=== PATIENT | male | born 1945 | race Caucasian/White ===

== ENCOUNTER 2016-11-11 11:44 | Observation (INO) | payer MEDICARE, BC ==
[~2016-11-11] VITALS: Ht 180.3 cm; Wt 98.6 kg
[~2016-11-11 11:44] MED LIST: ASPI325T PO; CEPH500T PO; METO50TA PO
[2016-11-11 11:48] VITALS: BP 165/81; PULSE 57; RESP 18; TEMP 97.5; O2SAT 98
[2016-11-11] MEDS ORDERED: FLEC1TAB8 PO (11:59)
[2016-11-11] MEDS ORDERED: METO25TA3 PO (11:59)
[2016-11-11 12:00] VITALS: O2SAT 99
[2016-11-11] MEDS ORDERED: SODIUM CHLORIDE 0.9% FLUSH 10 ML FLUSH IVF PRN (12:00)
[2016-11-11 12:15] LABS: AUTOMATED NEUTROPHIL # 2.3 TH/MM3 (1.8-7.7); BASOPHIL % 0.9 % (0.0-2.0); EOSINOPHIL # 0.2 TH/MM3 (0-0.4); EOSINOPHIL % 3.1 % (0.0-4.0); HEMATOCRIT 44.1 % (39.0-51.0); HEMO FLAGS DIFF FINAL; LYMPH % 41.2 % (9.0-44.0); MEAN CELL VOLUME 94.3 FL (80.0-100.0); MEAN CORPUSCULAR HEMOGLOBIN 31.7 PG (27.0-34.0); MEAN CORPUSCULAR HGB CONC 33.6 % (32.0-36.0); NEUT % 46.8 % (16.0-70.0); PLATELET COUNT 229 TH/MM3 (150-450); RED BLOOD COUNT 4.67 MIL/MM3 (4.50-5.90); RED CELL DISTRIBUTION WIDTH 13.2 % (11.6-17.2); WHITE BLOOD COUNT 4.9 TH/MM3 (4.0-11.0)
[2016-11-11 12:25] LABS: APTT (PATIENT) 28.3 SEC (24.3-30.1); INTERNATIONAL NORMALIZED RATIO 1.2 RATIO; PROTHROMBIN TIME - PATIENT 13.1 SEC (9.8-11.6)
--- NOTE | 2016-11-11 12:33 | RADRPT ---
EXAM DATE/TIME: 11/11/2016 12:01 [facility] COMPARISON: No previous studies available for comparison. INDICATIONS : Stroke symptoms. MEDICAL HISTORY : Atrial fibrillation. SURGICAL HISTORY : None. ENCOUNTER: Initial ACUITY: 1 day PAIN SCORE: 0/10 LOCATION: Bilateral chest FINDINGS: 2 frontal views of the chest demonstrate the lungs to be symmetrically aerated without evidence of ma ss, infiltrate or effusion. The cardiomediastinal contours are unremarkable. Osseous structures are intact. CONCLUSION: No acute disease. Jerad Laurent Jr., MD on November 11, 2016 at 12:29 Board Certified Radiologist. This report was verified electronically.
--- NOTE | 2016-11-11 12:34 | PD ---
HPI Chief Complaint: Neuro Symptoms/ Deficits Time Seen by Provider: 12:34 Travel History International Travel<30 days: No Contact w/Intl Traveler<30days: No Traveled to known affect area: No History of Present Illness HPI 71-year-old male with history of hypertension, melanoma, A. fib, presents to emergency department for evaluation. Patient states he was working on his taxes and around 11:15 this morning he noticed he was having difficult time typing and the address. He then noticed he was drooling. He went in to talk to his and had slurred speech. This resolved after 30-40 minutes but the patient continued to the ER for further evaluation. There is no preceding headache. Patient states he feels "fine" now. Denies any chest or tightness. No difficulty breathing. No history of CVA or TIA. He has had no recent illnesses, fever, or chills. No other symptoms to report. PFSH Past Medical History Atrial Fibrillation: Yes Cancer: Yes (MELANOMA) Cardiovascular Problems: Yes (A. FIB) Diminished Hearing: No Hypertension: Yes Immunizations Current: Yes Past Surgical History Tonsillectomy: Yes Other Surgery: Yes (MELANOMA REMOVAL) Social History Alcohol Use: Yes (SOCIAL) Tobacco Use: No Substance Use: No Allergies-Medications (Allergen,Severity, Reaction): Coded Allergies: No Known Allergies (Unverified , 11/11/16) Reported Meds & Prescriptions Reported Meds & Active Scripts Active Reported Metoprolol Tartrate 25 Mg Tab 25 Mg PO BID Flecainide (Flecainide Acetate) 50 Mg Tab 50 Mg PO BID Review of Systems Except as stated in HPI: all other systems reviewed are Neg Physical Exam Narrative GENERAL: Well-nourished male patient, in no acute distress SKIN: Focused skin assessment warm/dry. HEAD: Atraumatic. Normocephalic. EYES: Pupils equal and round. No scleral icterus. No injection or drainage. ENT: No nasal bleeding or discharge. Mucous membranes pink and moist. NECK: Trachea midline. No JVD. CARDIOVASCULAR: Regular rate and rhythm. No murmur appreciated. RESPIRATORY: No accessory muscle use. Clear to auscultation. Breath sounds equal bilaterally. GASTROINTESTINAL: Abdomen soft, non-tender, nondistended. Hepatic and splenic margins not palpable. MUSCULOSKELETAL: No obvious deformities. No clubbing. No cyanosis. No edema. NEUROLOGICAL: Awake and alert. No obvious cranial nerve deficits. Motor grossly within normal limits. Normal speech. No pronator drift. Equal strength bilateral extremities. PSYCHIATRIC: Appropriate mood and affect; insight and judgment normal. Data Data Last Documented VS Vital Signs Date Time Temp Pulse Resp B/P Pulse Ox O2 Delivery O2 Flow Rate FiO2 11/11/16 12:51 53 18 127/60 98 Room Air 11/11/16 11:48 97.5 Orders Electrocardiogram (11/11/16 11:57) Complete Blood Count With Diff (11/11/16 11:57) Comprehensive Metabolic Panel (11/11/16 11:57) Magnesium (Mg) (11/11/16 11:57) Ckmb (Isoenzyme) Profile (11/11/16 11:57) Act Partial Throm Time (Ptt) (11/11/16 11:57) Prothrombin Time / Inr (Pt) (11/11/16 11:57) Urinalysis - C+S If Indicated (11/11/16 11:57) Chest, Single Ap (11/11/16 11:57) Ct Brain W/O Iv Contrast(Rout) (11/11/16 11:57) Ecg Monitoring (11/11/16 11:57) Iv Access Insert/Monitor (11/11/16 11:57) Oximetry (11/11/16 11:57) Sodium Chloride 0.9% Flush (Ns Flush) (11/11/16 12:00) CKMB (11/11/16 12:02) CKMB% (11/11/16 12:02) Labs Laboratory Tests Test 11/11/16 11/11/16 12:02 13:25 White Blood Count 4.9 TH/MM3 Red Blood Count 4.67 MIL/MM3 Hemoglobin 14.8 GM/DL Hematocrit 44.1 % Mean Corpuscular Volume 94.3 FL Mean Corpuscular Hemoglobin 31.7 PG Mean Corpuscular Hemoglobin 33.6 % Concent Red Cell Distribution Width 13.2 % Platelet Count 229 TH/MM3 Mean Platelet Volume 8.0 FL Neutrophils (%) (Auto) 46.8 % Lymphocytes (%) (Auto) 41.2 % Monocytes (%) (Auto) 8.0 % Eosinophils (%) (Auto) 3.1 % Basophils (%) (Auto) 0.9 % Neutrophils # (Auto) 2.3 TH/MM3 Lymphocytes # (Auto) 2.0 TH/MM3 Monocytes # (Auto) 0.4 TH/MM3 Eosinophils # (Auto) 0.2 TH/MM3 Basophils # (Auto) 0.0 TH/MM3 CBC Comment DIFF FINAL Differential Comment Prothrombin Time 13.1 SEC Prothromb Time International 1.2 RATIO Ratio Activated Partial 28.3 SEC Thromboplast Time Sodium Level 140 MEQ/L Potassium Level 4.1 MEQ/L Chloride Level 105 MEQ/L Carbon Dioxide Level 31.9 MEQ/L Anion Gap 3 MEQ/L Blood Urea Nitrogen 15 MG/DL Creatinine 1.02 MG/DL Estimat Glomerular Filtration 72 ML/MIN Rate Random Glucose 83 MG/DL Calcium Level 9.4 MG/DL Magnesium Level 2.3 MG/DL Total Bilirubin 0.3 MG/DL Aspartate Amino Transf 27 U/L (AST/SGOT) Alanine Aminotransferase 39 U/L (ALT/SGPT) Alkaline Phosphatase 59 U/L Total Creatine Kinase 159 U/L Creatine Kinase MB 2.4 NG/ML Total Protein 7.2 GM/DL Albumin 3.8 GM/DL Urine Color LIGHT-YELLOW Urine Turbidity CLEAR Urine pH 7.0 Urine Specific [place] 1.006 Urine Protein NEG mg/dL Urine Glucose (UA) NEG mg/dL Urine Ketones NEG mg/dL Urine Occult Blood NEG Urine Nitrite NEG Urine Bilirubin NEG Urine Urobilinogen LESS THAN 2.0 MG/DL Urine Leukocyte Esterase NEG Urine WBC 1 /hpf Microscopic Urinalysis Comment CULT NOT INDICATED MDM Medical Decision Making Medical Screen Exam Complete: Yes Emergency Medical Condition: Yes Medical Record Reviewed: Yes Differential Diagnosis TIA versus CVA versus electrolyte abnormality Narrative Course 71-year-old male presents to the emergency department for evaluation. Upon arrival and during assessment, patient is completely asymptomatic. He has no focal deficits or weakness. CBC and CMP are unremarkable. Chest x-rays without acute disease. CT imaging of the brain is with no acute intracranial findings. Mild partial opacification left ethmoid sinus with small air-fluid suggesting acute sinusitis. I discussed the patient my attending physician Dr. sherron hale. Patient will be admitted to the hospitalist team for observation and further TIA workup. Diagnosis Primary Impression: TIA (transient ischemic attack) Qualified Code: G45.9 - Transient cerebral ischemia, unspecified type Admitting Information Admitting Physician Requests: Observation Condition: Stable Maddy RobertsP Nov 11, 2016 12:34
[2016-11-11 12:42] LABS: ALT (GPT) 39 U/L (12-78); ANION GAP 3 MEQ/L (5-15); AST (GOT) 27 U/L (15-37); BICARBONATE 31.9 MEQ/L (21.0-32.0); BLOOD UREA NITROGEN 15 MG/DL (7-18); CHLORIDE 105 MEQ/L (98-107); GLOMERULAR FILTRATION RATE 72 ML/MIN (>89); MAGNESIUM 2.3 MG/DL (1.5-2.5); POTASSIUM 4.1 MEQ/L (3.5-5.1); SODIUM (NA) 140 MEQ/L (136-145)
[2016-11-11 12:44] LABS: ALKALINE PHOSPHATASE 59 U/L (45-117); CREATINE KINASE 159 U/L (39-308); TOTAL BILIRUBIN ADULT 0.3 MG/DL (0.2-1.0)
[2016-11-11 12:51] VITALS: BP 127/60; PULSE 53; RESP 18; O2SAT 98
[2016-11-11 13:05] LABS: CKMB 2.4 NG/ML (0.5-3.6)
[2016-11-11 13:48] LABS: BLOOD, URINE NEG (NEG); GLUCOSE,URINE NEG (NEG); KETONE, URINE NEG (NEG); NITRITE,URINE NEG (NEG); URINE COLOR LIGHT-YELLOW (YELLW/STRAW)
[2016-11-11 13:49] LABS: COMMENT (UR) CULT NOT INDICATED; CULTURE IF INDICATED CULT NOT INDICATED
--- NOTE | 2016-11-11 13:50 | RADRPT ---
EXAM DATE/TIME: 11/11/2016 12:34 [facility] COMPARISON: No previous studies available for comparison. INDICATIONS : Slurred speech, dizziness. RADIATION DOSE: 44.36 CTDIvol (mGy) MEDICAL HISTORY : None SURGICAL HISTORY : None. ENCOUNTER: Initial ACUITY: 1 day PAIN SCALE: 0/10 LOCATION: cranial TECHNIQUE: Multiple contiguous axial images were obtained of the head. Using automated exposure control and adj ustment of the mA and/or kV according to patient size, radiation dose was kept as low as reasonably a chievable to obtain optimal diagnostic quality images. FINDINGS: CEREBRUM: The ventricles are normal for age. No evidence of midline shift, mass lesion, hemorrhage or acute in farction. No extra-axial fluid collections are seen. POSTERIOR FOSSA: The cerebellum and brainstem are intact. The 4th ventricle is midline. The cerebellopontine angle i s unremarkable. EXTRACRANIAL: Partial opacification left ethmoid sinus a small air-fluid level. SKULL: The calvaria is intact. No evidence of skull fracture. CONCLUSION: 1. No acute intracranial findings. 2. Mild partial opacification left ethmoid sinus with small air-fluid level suggestive of acute sinus itis.. Hal Mcclain MD on November 11, 2016 at 13:46 Board Certified Radiologist. This report was verified electronically.
[2016-11-11] MEDS ORDERED: SODIUM CHLORIDE 0.9% FLUSH 10 ML FLUSH IV FLUSH PRN ×2 (14:45→19:30)
[2016-11-11] MEDS ORDERED: NALOXONE HCL 0.4 MG/ML AMP IV PRN (14:45)
[2016-11-11] MEDS ORDERED: ONDANSETRON HCL 4 MG/2 ML VIAL IVP PRN (14:45)
--- NOTE | 2016-11-11 14:58 | HHI.HP ---
[facility] Service [place] Hospitalists Primary Care Physician Non-Staff Admission Diagnosis TIA Diagnoses: Chief Complaint: Unable to speak. Travel History International Travel<30 Days: No Contact w/Intl Traveler <30 Da: No Traveled to Known Affected Are: No History of Present Illness This is a pleasant 71 y/o male with Hypertension, Melanoma, Atrial fibrillation by history, today on Sinus rhythm, has Bradycardia probable secondary to his anti arrhythmic medicines, Flecainide and Beta Blockers, Patient states he was working on his taxes and around 11:15 this morning he noticed he was having difficult time typing and the address. He then noticed he was drooling. He went in to talk to his and had slurred speech. This resolved after 30-40 minutes but the patient continued to the ER for further evaluation. There is no preceding headache. since seen by ER physician totally asymptomatic. Seen in his bedroom in ER and discussed with him and his , Daughter and sister in law, he is stable his daughter states more than slurred speech, suddenly he was not able to speak but resolved without symptomatology. he has recurrent PAF and was recommended by investigative research specialist to be on anticoagulation, now his CHADS2 SCORE INCREASED TO 3 and he may need to be on anticoagulation at the time of this evaluation he is sinus rhythm, has Bradycardia may need to titrate his Heart medicines, asked for Neurology and Cardiology consults. Past Family Social History Past Medical History Atrial Fibrillation Melanoma by history Hypertension Past Surgical History Tonsillectomy Melanoma resection Reported Medications Reported Meds & Active Scripts Active Reported Metoprolol Tartrate 25 Mg Tab 25 Mg PO BID Flecainide (Flecainide Acetate) 50 Mg Tab 50 Mg PO BID Allergies: Coded Allergies: No Known Allergies (Unverified , 11/11/16) Active Ordered Medications Current Medications Medications (Trade) Dose Ordered Sig/Pollo Route Start Time Stop Time Status Last Admin (NS Flush) 2 ml UNSCH PRN IVF 11/11/16 12:00 Family History Father with Brain Cancer and Sister with Breast Cancer Social History Drinks alcohol socially, lives with his and denies other toxic habit. Physical Exam Vital Signs Vital Signs Date Time Temp Pulse Resp B/P Pulse Ox O2 Delivery O2 Flow Rate FiO2 11/11/16 12:51 53 18 127/60 98 Room Air 11/11/16 12:00 99 Room Air 11/11/16 11:51 56 18 98 Room Air 11/11/16 11:48 97.5 57 18 165/81 98 Physical Exam GENERAL: Obesity, in no acute distress SKIN: Focused skin assessment warm/dry. HEAD: Atraumatic. Normocephalic. EYES: Pupils equal and round. No scleral icterus. No injection or drainage. ENT: No nasal bleeding or discharge. Mucous membranes pink and moist. NECK: Trachea midline. No JVD. CARDIOVASCULAR: Regular rate and rhythm. No murmur appreciated. RESPIRATORY: No accessory muscle use. Clear to auscultation. Breath sounds equal bilaterally. GASTROINTESTINAL: Abdomen soft, non-tender, nondistended. Hepatic and splenic margins not palpable. MUSCULOSKELETAL: No obvious deformities. No clubbing. No cyanosis. No edema. NEUROLOGICAL: Awake and alert. No obvious cranial nerve deficits. Motor grossly within normal limits. Normal speech. No pronator drift. Equal strength bilateral extremities. PSYCHIATRIC: Appropriate mood and affect; insight and judgment normal. Laboratory Laboratory Tests Test 11/11/16 11/11/16 12:02 13:25 White Blood Count 4.9 Red Blood Count 4.67 Hemoglobin 14.8 Hematocrit 44.1 Mean Corpuscular Volume 94.3 Mean Corpuscular Hemoglobin 31.7 Mean Corpuscular Hemoglobin 33.6 Concent Red Cell Distribution Width 13.2 Platelet Count 229 Mean Platelet Volume 8.0 Neutrophils (%) (Auto) 46.8 Lymphocytes (%) (Auto) 41.2 Monocytes (%) (Auto) 8.0 Eosinophils (%) (Auto) 3.1 Basophils (%) (Auto) 0.9 Neutrophils # (Auto) 2.3 Lymphocytes # (Auto) 2.0 Monocytes # (Auto) 0.4 Eosinophils # (Auto) 0.2 Basophils # (Auto) 0.0 CBC Comment DIFF FINAL Differential Comment Prothrombin Time 13.1 Prothromb Time International 1.2 Ratio Activated Partial 28.3 Thromboplast Time Sodium Level 140 Potassium Level 4.1 Chloride Level 105 Carbon Dioxide Level 31.9 Anion Gap 3 Blood Urea Nitrogen 15 Creatinine 1.02 Estimat Glomerular Filtration 72 Rate Random Glucose 83 Calcium Level 9.4 Magnesium Level 2.3 Total Bilirubin 0.3 Aspartate Amino Transf 27 (AST/SGOT) Alanine Aminotransferase 39 (ALT/SGPT) Alkaline Phosphatase 59 Total Creatine Kinase 159 Creatine Kinase MB 2.4 Total Protein 7.2 Albumin 3.8 Urine Color LIGHT-YELLOW Urine Turbidity CLEAR Urine pH 7.0 Urine Specific [place] 1.006 Urine Protein NEG Urine Glucose (UA) NEG Urine Ketones NEG Urine Occult Blood NEG Urine Nitrite NEG Urine Bilirubin NEG Urine Urobilinogen LESS THAN 2.0 Urine Leukocyte Esterase NEG Urine WBC 1 Microscopic Urinalysis Comment CULT NOT INDICATED Result Diagram: 11/11/16 1202 11/11/16 1202 Imaging Last Impressions Head CT 11/11/16 1157 Signed Impressions: Service Date/Time: October 12:34 - CONCLUSION: 1. No acute intracranial findings. 2. Mild partial opacification left ethmoid sinus with small air-fluid level suggestive of acute sinusitis.. Hal Mcclain MD Chest X-Ray 11/11/16 1157 Signed Impressions: Service Date/Time: October 12:01 - CONCLUSION: No acute disease. Jerad Laurent Jr., MD Assessment and Plan Problem List: (1) TIA (transient ischemic attack) ICD Code: G45.9 Status: Acute (2) Atrial fibrillation, currently in sinus rhythm ICD Code: Z86.79 Status: Acute Assessment and Plan 1. TIA patient is been hospitalized for Observation, started on Aspirin 325 mg he already takes 81 mg daily, asked for Cardiac monitoring, Cardiac Enzymes, MRI brain, MRA Neck with contrast, Echocardiogram, Lipid panel, TSH, free T4. Vitamin B12 Folate. 2. Atrial Fibrillation at this time on sinus rhythm, has first degree AV block. bradycardia probable secondary to Anti arrhythmic medicines placed parameters to his medicines, asked for investigative research specialist consult CHADS 2 Score 3 will need anticoagulation. at this time he has sinus rhythm, will continue aspirin by now until seen by Cardiology to take decision the best medicine for him. 3. Hypertension controlled. 4. Obesity strongly recommended to diet and exercise. DVT prophylaxis with Lovenox. PT and OT evaluation. I had the pleasure to talk about the case with JAVIER Miss Maddy Roberts Input and Recommendations Appreciated. Code Status Full code Discussed Condition With Patient, , Daughter and Sister in law, all questions answered to the best of my abilities. Physician Certification 2 Midnight Certification Type: Admission for Inpatient Services Order for Inpatient Services The services are ordered in accordance with Medicare regulations or non- Medicare payer requirements, as applicable. In the case of services not specified as inpatient-only, they are appropriately provided as inpatient services in accordance with the 2-midnight benchmark. Estimated LOS (days): 1 days is the estimated time the patient will need to remain in the hospital, assuming treatment plan goals are met and no additional complications. Post-Hospital Plan: Home Problem Qualifiers (1) TIA (transient ischemic attack): Qualified Code: G45.9 - Transient cerebral ischemia, unspecified type Jay Diaz MD Nov 11, 2016 14:58
[2016-11-11] MEDS ORDERED: ACETAMINOPHEN 325 MG TAB PO PRN (15:00)
[2016-11-11] MEDS ORDERED: BISACODYL 10 MG SUPP RECTAL PRN (15:00)
[2016-11-11] MEDS: PRAVASTATIN SOD 20 MG TAB PO SCH (15:00)
[2016-11-11] MEDS ORDERED: ENOXAPARIN SODIUM 40 MG/0.4 ML SYRINGE SQ SCH (15:00)
[2016-11-11] MEDS: DOCUSATE SODIUM 100 MG CAP PO SCH (15:18)
[2016-11-11] MEDS: SODIUM CHLOR 0.9% 1000 ML INJ 1,000 ML IV SCH (15:18)
[2016-11-11] MEDS: ASPIRIN 325 MG TAB PO SCH (15:18)
[2016-11-11] MEDS ORDERED: GADODIAMIDE PF 287 MG/ML 20 ML VIAL (for RAD MRI) IV ONE (16:21)
--- NOTE | 2016-11-11 16:31 | RADRPT ---
EXAM DATE/TIME: 11/11/2016 16:00 [facility] COMPARISON: CT BRAIN W/O CONTRAST, November 11, 2016, 12:34. INDICATIONS : Confusion. Episode of drooling and no speech. MEDICAL HISTORY : Melanoma on cheek. SURGICAL HISTORY : Tonsillectomy. Melanoma removed three years ago. ENCOUNTER: Initial ACUITY: 1 day PAIN SCORE: 0/10 LOCATION: Head. TECHNIQUE: Multiplanar, multisequence MRI of the brain was performed without contrast. FINDINGS: CEREBRUM: The ventricles are normal for age. No evidence of midline shift, mass lesion, or hemorrhage. No ext raaxial fluid collections are seen. The pituitary gland and suprasellar cistern are normal in config uration. WHITE MATTER: No significant signal abnormalities are seen in the white matter. POSTERIOR FOSSA: The cerebellum and brainstem are intact. The 4th ventricle is midline. The cerebellopontine angle is unremarkable. The cerebellar tonsils are normal in position. DIFFUSION IMAGING: Faint 8mm hyperintensity in the left parietal lobe subcortical white matter on image #41 of the diffu bonny weighted images. Correlating low signal is seen on the ADC map images indicating a small acute t o subacute infarct. EXTRACRANIAL: The visualized portions of the orbits and paranasal sinuses are unremarkable. CONCLUSION: Small acute to subacute infarct in the subcortical white matter of the left parietal lobe. No mass effect. No evidence of hemorrhage. Hal Mcclain MD on November 11, 2016 at 16:25 Board Certified Radiologist. This report was verified electronically.
--- NOTE | 2016-11-11 16:50 | RADRPT ---
EXAM DATE/TIME: 11/11/2016 16:00 [facility] COMPARISON: No previous studies available for comparison. INDICATIONS : Stroke. Episode of drooling and loss of speech. CONTRAST: 20 cc Omniscan (gadodiamide) IV MEDICAL HISTORY : Melanoma on cheek. SURGICAL HISTORY : Tonsillectomy. Melanoma removed. ENCOUNTER: Initial ACUITY: 1 day PAIN SCORE: 0/10 LOCATION: Head. Percent stenosis is calculated using the diameter of the stenotic region over the diameter of the nor mal distal internal carotid artery. TECHNIQUE: Bolus infused MRA of the extracranial circulation was performed using a neurovascular coil. Post pro cessing was performed including rotating subvolume maximum intensity projections of each carotid pasha ry, rotating full volume maximum intensity projections of both carotid arteries, sagittal and coronal sliding thin slab reformations of each carotid artery, and left oblique sliding thin slab reformatio n through the aortic arch to include the origin of the arch branch vessels. FINDINGS: AORTIC ARCH: There is a three vessel origin of the great vessels from the aorta. No evidence of ostial narrowing. RIGHT CAROTID: The common carotid artery is intact. The carotid bulb has a normal configuration without ulceration or narrowing. The internal carotid artery lumen is smooth without stenosis. The external carotid ar mayur is intact. LEFT CAROTID: The common carotid artery is intact. The carotid bulb has a normal configuration without ulceration or narrowing. The internal carotid artery lumen is smooth without stenosis. The external carotid ar mayur is intact. VERTEBRALS: The vertebral arteries have a symmetric diameter. No stenotic lesions are seen. CONCLUSION: Carotid MRA within normal limits. Hal Mcclain MD on November 11, 2016 at 16:45 Board Certified Radiologist. This report was verified electronically.
--- NOTE | 2016-11-11 17:10 | EC ---
Study Study Date:11/11/2016 STUDY CONCLUSIONS SUMMARY - Left ventricle: The cavity size was normal. Wall thickness was normal. Systolic function was normal. The estimated ejection fraction was in the range of 55% to 65%. Wall motion was normal; there were no regional wall motion abnormalities. - Aortic valve: Valve area: 2.03cm^2 (Vmax). - Mitral valve: Mild regurgitation. - Tricuspid valve: Mild regurgitation. If LV function is below 40, please consider prescribing an ACEI or ARB or document rationale for non-use. PROCEDURE DATA STUDY STATUS: Elective. Procedure: Transthoracic echocardiography. Image quality was good. Scanning was performed from the parasternal, apical, and subcostal acoustic windows. Study completion: The patient tolerated the procedure well. Transthoracic echocardiography. M-mode, complete 2D, complete spectral Doppler, and color Doppler. Height: Height: 71in. Weight: Weight: 219.5lb. Body mass index: BMI: 30.7kg/m^2. Body surface area: BSA: 2.2m^2. Patient status: Inpatient. CARDIAC ANATOMY LEFT VENTRICLE: The cavity size was normal. Wall thickness was normal. Systolic function was normal. The estimated ejection fraction was in the range of 55% to 65%. Wall motion was normal; there were no regional wall motion abnormalities. AORTIC VALVE: Trileaflet; normal thickness leaflets. Doppler: Transvalvular velocity was within the normal range. There was no stenosis. No regurgitation. Valve area: 2.03cm^2 (Vmax). Indexed valve area: 0.92cm^2/m^2 (Vmax). AORTA: Aortic root: The aortic root was normal in size. MITRAL VALVE: Structurally normal valve. Doppler: Transvalvular velocity was within the normal range. There was no evidence for stenosis. Mild regurgitation. LEFT ATRIUM: The atrium was normal in size. RIGHT VENTRICLE: The cavity size was normal. Wall thickness was normal. PULMONIC VALVE: Doppler: Transvalvular velocity was within the normal range. There was no evidence for stenosis. No regurgitation. TRICUSPID VALVE: Structurally normal valve. Doppler: Transvalvular velocity was within the normal range. Mild regurgitation. PULMONARY ARTERY: The main pulmonary artery was normal-sized. Systolic pressure was within the normal range. RIGHT ATRIUM: The atrium was normal in size. PERICARDIUM: There was no pericardial effusion. SYSTEMIC VEINS: Inferior vena cava: The vessel was normal in size. Patient weight: 219.5lb _Ejection fraction:_ 65-75% _Fractional shortening:_ 32% up to 5Kg 5-11.5Kg 11.6-22.9Kg 23-45Kg 45-57Kg Aortic Root 7-13 <17 13-22 17-27 17-27 LA diam 6-13 <23 24-38 33-47 37-40 RVID 10-17 7-15 7-15 7-18 8-17 LVIDd 12-22 <32 24-38 33-47 37-40 LVPW 2-4 3-6 5-7 6-8 7-8 IVS 2-4 3-6 5-7 6-8 7-8 BASIC MEASUREMENTS ADULT NORMAL Left ventricle LV internal dimension, ED, chordal *42.1 mm 43-52 level, PLAX LV internal dimension, ES, chordal 32.8 mm 23-38 level, PLAX Fractional shortening, chordal level, *22 % >29 PLAX LV posterior wall thickness, ED 9.61 mm IVS/LVPW ratio, ED 1.11 <1.3 Ventricular septum Septal thickness, ED 10.7 mm Aortic valve Leaflet separation 21 mm 15-26 BASIC MEASUREMENTS ADULT NORMAL Aortic valve Leaflet separation 21 mm 15-26 Aorta Root diameter, ED 26 mm 20-37 Left atrium Anterior-posterior dimension, ES 39 mm 19-40 Anterior-posterior dimension index, ES 1.77 cm/m^2 <2.2 LA/aortic root ratio 1.5 DOPPLER MEASUREMENTS ADULT NORMAL Main pulmonary artery Pressure, S 28 mm Hg =30 Aortic valve Peak velocity, S 92.3 cm/s Valve area, Vmax 2.03 cm^2 Valve area index, Vmax 0.92 cm^2/m^2 Mitral valve Maximal regurgitant velocity 268 cm/s Tricuspid valve Regurgitant peak velocity 246 cm/s Peak RV-RA gradient, S 24 mm Hg Maximal regurgitant velocity 246 cm/s Systemic veins Estimated CVP 10 mm Hg Right ventricle RV pressure, S *34 mm Hg <30 Pulmonic valve Peak velocity, S 119 cm/s LEGEND: Mean values are shown as u=mean value. Asterisk (*) anne values outside specified normal range. Prepared and signed by Elliot Greene [id number]
[2016-11-11 17:59] VITALS: BP 139/73; PULSE 57; RESP 18; TEMP 96.9; O2SAT 98
[2016-11-11] MEDS ORDERED: DEXTROSE 50% IN WATER 50 ML VIAL(D50) IV PUSH PRN (19:30)
[2016-11-11] MEDS ORDERED: HEPARIN-D5W INJ 250 ML IV SCH (19:30)
[2016-11-11] MEDS ORDERED: GLUCAGON 1 MG/ML VIAL IM/SQ PRN (19:30)
[2016-11-11 20:00] VITALS: BP_SYST 106; BP_SYST 140; BP_DIAS 59; BP_DIAS 76; PULSE 57; PULSE 83; RESP 18; RESP 20; TEMP 97.5; TEMP 98; O2SAT 96; O2SAT 98
[2016-11-11] MEDS ORDERED: SODIUM CHLORIDE 0.9% FLUSH 10 ML FLUSH IV FLUSH SCH (21:00)
[2016-11-11] MEDS: SODIUM CHLORIDE 0.9% FLUSH 10 ML FLUSH IV FLUSH SCH (21:00)
[2016-11-11] MEDS: FLECAINIDE ACETATE 100 MG TAB PO SCH (21:00)
[2016-11-11] MEDS: INSULIN ASPART SUPPLEMENTAL SCALE SQ SCH (21:00)
[2016-11-11 21:16] LABS: HEMATOCRIT 43.1 % (39.0-51.0); MEAN CELL VOLUME 95.2 FL (80.0-100.0); MEAN CORPUSCULAR HEMOGLOBIN 32.4 PG (27.0-34.0); MEAN CORPUSCULAR HGB CONC 34.1 % (32.0-36.0); PLATELET COUNT 224 TH/MM3 (150-450); RED BLOOD COUNT 4.53 MIL/MM3 (4.50-5.90); RED CELL DISTRIBUTION WIDTH 13.1 % (11.6-17.2); REVIEW FLAG FINAL; WHITE BLOOD COUNT 5.2 TH/MM3 (4.0-11.0)
[2016-11-11 21:26] LABS: PROTHROMBIN TIME - PATIENT 11.3 SEC (9.8-11.6)
--- NOTE | 2016-11-11 21:28 | MB ---
cc: THIERNO GONZALEZ M.D. DATE OF CONSULTATION 11/11/16 REASON FOR CONSULTATION TIA. HISTORY OF PRESENT ILLNESS Mr. Hough is a very nice 71-year-old man with a history of intermittent atrial fibrillation previously healthy until today earlier when he was working at the keyboard at the computer, suddenly had difficulty with his thoughts, connecting his thoughts to his hands and also with slurred speech. He had no focal weakness or numbness. He came to the emergency room and within about 45 minutes his symptoms resolved. He is back to normal at the present time. He denies any prior history of stroke or TIA. PAST MEDICAL HISTORY 1. History of atrial fibrillation in the past, was on Coumadin but stopped this a number of years ago because he did not want to have to continue getting the blood test although he had no complications. Otherwise on no other past medical history. 2. Apparently history of bradycardia 3. History of melanoma according to the chart with resection 4. Hypertension. MEDICATIONS 1. Metoprolol 25 mg b.i.d. 2. Aspirin 325 mg daily. 3. Flecainide 50 mg b.i.d. SOCIAL HISTORY Drinks alcohol occasionally. Denies tobacco abuse. NEUROLOGIC EXAMINATION Blood pressure is 139/73, pulse 57, respiratory rate is 18, temperature 96.9 degrees. Higher cortical functions are normal including speech. Cranial nerves II-XII are normal in detail. Motor exam - he has 5/5 strength of all groups in both upper and lower extremities. There is no drift. Fine motor skills normal. Reflexes are symmetric. IMAGING STUDIES CT of the brain shows no acute change. MRI of the brain - very small acute subacute stroke in the left parietal subcortical white matter; no hemorrhage is seen. MRA neck is normal with no significant stenosis. CARDIOLOGY STUDIES EKG - currently sinus rhythm. LABORATORY DATA White count 4900, hemoglobin 14.8, hematocrit 44%, platelet count 229,000, PT 13.1, INR 1.2, APTT 28. Sodium is 140, potassium 4.1, chloride 105, CO2 31.9. BUN is 15, creatinine 1.02, AST is 27, ALT is 39. IMPRESSION Small left parietal stroke probably related to atrial fibrillation. RECOMMENDATIONS We will start the patient on IV heparin with no boluses per stroke protocol. Recommend cardiology evaluation to recommend long-term anticoagulation. Also we will check a lipid panel. MD MAHENDRA Bills /7:25 PM /9:14 PM
[2016-11-11 21:53] LABS: CREATINE KINASE 145 U/L (39-308); FREE T4 0.81 NG/DL (0.76-1.46); HDL CHOLESTEROL 47.5 MG/DL (40.0-60.0); LDL CHOLESTEROL 81 MG/DL (0-99)
[2016-11-11 22:11] LABS: APTT (PATIENT) 27.2 SEC (24.3-30.1)
[2016-11-11 22:20] LABS: HEMOGLOBIN A1a 1.1 %; HEMOGLOBIN A1b 1.5 %; HEMOGLOBIN Ao 85.4 %; HEMOGLOBIN LA1C 2.1 %; HEMOGLOBIN P3 3.7 %
[2016-11-11] MEDS: METOPROLOL TARTRATE 25 MG TAB PO SCH (22:41)
[2016-11-12] VITALS (11 sets, daily range): BP systolic 108–134; BP diastolic 57–69; PULSE 49–58; RESP 16–24; TEMP 95.8–97.2; O2SAT 94–96
[2016-11-12] MEDS: SODIUM CHLOR 0.9% 1000 ML INJ 1,000 ML IV SCH ×3 (00:38→20:38)
[2016-11-12] MEDS: DOCUSATE SODIUM 100 MG CAP PO SCH ×2 (03:00→14:25)
[2016-11-12 06:44] LABS: AUTOMATED NEUTROPHIL # 2.1 TH/MM3 (1.8-7.7); BASOPHIL # 0.1 TH/MM3 (0-0.2); BASOPHIL % 1.1 % (0.0-2.0); EOSINOPHIL # 0.2 TH/MM3 (0-0.4); EOSINOPHIL % 3.6 % (0.0-4.0); HEMATOCRIT 41.7 % (39.0-51.0); HEMO FLAGS DIFF FINAL; LYMPH % 48.7 % (9.0-44.0); LYMPHOCYTE # 2.6 TH/MM3 (1.0-4.8); MEAN CELL VOLUME 94.1 FL (80.0-100.0); MEAN CORPUSCULAR HEMOGLOBIN 31.7 PG (27.0-34.0); MEAN CORPUSCULAR HGB CONC 33.7 % (32.0-36.0); MONO % 7.2 % (0.0-8.0); NEUT % 39.4 % (16.0-70.0); PLATELET COUNT 205 TH/MM3 (150-450); RED BLOOD COUNT 4.43 MIL/MM3 (4.50-5.90); RED CELL DISTRIBUTION WIDTH 13.1 % (11.6-17.2); WHITE BLOOD COUNT 5.4 TH/MM3 (4.0-11.0)
[2016-11-12 06:45] LABS: APTT (PATIENT) 45.2 SEC (24.3-30.1); PROTHROMBIN TIME - PATIENT 11.5 SEC (9.8-11.6)
[2016-11-12] MEDS: INSULIN ASPART SUPPLEMENTAL SCALE SQ SCH ×4 (07:00→20:50)
[2016-11-12 07:06] LABS: ALT (GPT) 33 U/L (12-78); ANION GAP 6 MEQ/L (5-15); AST (GOT) 24 U/L (15-37); BICARBONATE 29.3 MEQ/L (21.0-32.0); CHLORIDE 106 MEQ/L (98-107); GLOMERULAR FILTRATION RATE 74 ML/MIN (>89); POTASSIUM 4.1 MEQ/L (3.5-5.1); SODIUM (NA) 141 MEQ/L (136-145)
[2016-11-12 07:09] LABS: ALKALINE PHOSPHATASE 51 U/L (45-117); BLOOD UREA NITROGEN 13 MG/DL (7-18); CREATINE KINASE 134 U/L (39-308); HDL CHOLESTEROL 42.6 MG/DL (40.0-60.0); INDIRECT BILIRUBIN 0.3 MG/DL (0.0-0.8); LDL CHOLESTEROL 94 MG/DL (0-99); TOTAL BILIRUBIN ADULT 0.4 MG/DL (0.2-1.0)
[2016-11-12] MEDS: ASPIRIN 325 MG TAB PO SCH (08:47)
[2016-11-12] MEDS: PRAVASTATIN SOD 20 MG TAB PO SCH (08:48)
[2016-11-12] MEDS: METOPROLOL TARTRATE 25 MG TAB PO SCH ×3 (08:49→20:48)
[2016-11-12] MEDS: SODIUM CHLORIDE 0.9% FLUSH 10 ML FLUSH IV FLUSH SCH ×2 (08:51→20:50)
[2016-11-12] MEDS: FLECAINIDE ACETATE 100 MG TAB PO SCH ×3 (08:51→20:49)
[2016-11-12] MEDS: APIXABAN 5 MG TABLET PO SCH ×2 (09:08→20:48)
[2016-11-12] MEDS ORDERED: PNEUMOCOCCAL POLYVALENT INJ 25 MCG/0.5 ML SYR IM ONE (10:00)
--- NOTE | 2016-11-12 10:30 | MB ---
cc: JAS PRIETO DO DATE OF CONSULTATION: 11/12/2016 REASON FOR CONSULTATION Atrial fibrillation with TIA. HISTORY OF PRESENT ILLNESS Chadd Hough is a pleasant 71-year-old male who presented to [facility] Emergency Room on November 11, 2016 due to possible TIA. He states that he was working on his taxes around 11:15 in the morning and noticed he was having a difficult time typing. He then noticed he started drooling. He went to talk to his and had slurred speech. This resolved after 30-40 minutes but because of the episode the patient felt that he should come to the emergency room for further evaluation. In seeing him today he had no neurological events overnight. He denies chest pain or shortness of breath. He was previously seen by a warehouse shift supervisor in [place] and was found to have atrial fibrillation around four years ago. At that time he was offered anticoagulation and started on metoprolol and flecainide. He continued on metoprolol and flecainide, but was on Coumadin and having difficulty controlling his INRs. At that time he spoke with the physician's enrichment assistant to the warehouse shift supervisor and they said that he was mostly in normal sinus rhythm and could stop his Coumadin. PAST MEDICAL HISTORY 1. Paroxysmal atrial fibrillation, CHADS2-VASc score equals 4. 2. Melanoma. 3. Hypertension. PAST SURGICAL HISTORY 1. Tonsillectomy. 2. Melanoma resection. ALLERGIES No known drug allergies. MEDICATIONS 1. Metoprolol tartrate 25 mg b.i.d. 2. Flecainide 50 mg b.i.d. FAMILY HISTORY Father had brain cancer. Sister had breast cancer. SOCIAL HISTORY The patient drinks alcohol socially. He lives with his . Denies tobacco or drug abuse. REVIEW OF SYSTEMS 14 systems were reviewed including osteopathic. Pertinent positives and negatives as above, otherwise negative. PHYSICAL EXAMINATION VITAL SIGNS: Temperature 96.3, heart rate 51, blood pressure 125/69, respirations 16, pulse ox 95% on room air. GENERAL: The patient appears well, in no acute distress, alert awake and oriented x3. HEENT: Extraocular muscles intact. Mucous membranes moist. NECK: Supple. No JVD at 45 degrees. No carotid bruits heard bilaterally. Carotid upstroke is brisk in nature. HEART: Regular in rhythm but bradycardic. Positive first and second heart sounds with a 1/6 holosystolic murmur noted at the apex. LUNGS: Clear to auscultation bilaterally. No wheezes, rales or rhonchi. ABDOMEN: Soft, nontender, nondistended. No organomegaly noted. EXTREMITIES: No clubbing, cyanosis or edema. Femoral and distal pulses intact bilaterally. NEUROLOGIC: No focal deficits. SKIN: Warm, dry and intact. MUSCULOSKELETAL: Osteopathically, no kyphoscoliosis, lordosis or paraspinal tender points. ELECTROCARDIOGRAM Electrocardiogram (November 11, 2016 at 11:48): Sinus bradycardia with first-degree AV block, borderline left axis deviation. LABORATORY Hemoglobin 14.0, hematocrit 41.7, platelets 205. Potassium 4.1, BUN 13, creatinine 1.0. Troponin negative x2. Total cholesterol 165, HDL 42.6, LDL 94, triglycerides 143. TSH 2.84. ECHOCARDIOGRAM Echocardiogram (November 11, 2016): Ejection fraction 55-65%, mild mitral and tricuspid regurgitation. IMPRESSIONS 1. Small left parietal stroke. 2. Paroxysmal atrial fibrillation with a CHADS2-VASc score of 4 (hypertension, age, stroke). 3. Bradycardia secondary to medications. 4. History of hypertension. 5. Ejection fraction of 55-65%, mild mitral and tricuspid regurgitation by echocardiogram (November 11, 2016). 6. History of melanoma. RECOMMENDATIONS 1. Chadd appears to have had a small left-sided parietal stroke from which he has since recovered. Because of his history of atrial fibrillation and increased CHADS-VASc score we will place him on Eliquis. I have asked Case Management to stop by and make sure this is covered by his insurance. 2. As far as his heart rate goes he is consistently in the 40s to 50s. I offered to take him off flecainide but he would like to wait and talk to his warehouse shift supervisor in [place]. We will decrease his metoprolol to 12.5 mg b.i.d. 3. He may be [place] more time [place] and if he does he will plan on following with myself in the office and at that time we will discuss taking him off flecainide. 4. Echocardiogram shows an ejection fraction of 55-65% with no structural heart disease. 5. He previously had a stress test within the last year which was negative per the patient. 6. We will start him on Eliquis and heparin will be stopped afterwards. 7. If stable later today he can be discharged from a cardiovascular standpoint. Thank you for allowing me to see Chadd Hough. If there are any questions, please do not hesitate to call. Jas Prieto DO VGP/BT /8:48 AM /10:14 AM
--- NOTE | 2016-11-12 10:41 | HHI.PR ---
Subjective Remarks This is a pleasant 71 y/o male with Hypertension, Melanoma, Atrial fibrillation by history, today on Sinus rhythm, has Bradycardia probable secondary to his anti arrhythmic medicines, Flecainide and Beta Blockers, Patient states he was working on his taxes and around 11:15 this morning he noticed he was having difficult time typing and the address. He then noticed he was drooling. He went in to talk to his and had slurred speech. This resolved after 30-40 minutes but the patient continued to the ER for further evaluation. There is no preceding headache. since seen by ER physician totally asymptomatic. Seen in his bedroom in ER and discussed with him and his , Daughter and sister in law, he is stable his daughter states more than slurred speech, suddenly he was not able to speak but resolved without symptomatology. he has recurrent PAF and was recommended by equal opportunity specialist to be on anticoagulation, now his CHADS2 SCORE INCREASED TO 3 and he may need to be on anticoagulation at the time of this evaluation he is sinus rhythm, has Bradycardia may need to titrate his Heart medicines, asked for Neurology and Cardiology consults. 11/12 Patient seen in his bedroom awaiting final recommendations by Neurology specialist and equal opportunity specialist for discharge he may need anticoagulation. no nausea, vomit or diarrhea. Objective Vital Signs Date Time Temp Pulse Resp B/P Pulse Ox O2 Delivery O2 Flow Rate FiO2 11/12/16 10:29 94 21 11/12/16 10:15 50 11/12/16 08:00 96.3 51 16 125/69 95 11/12/16 04:22 54 11/12/16 04:00 97.2 58 20 110/61 96 11/12/16 00:00 97.0 55 20 108/57 96 11/11/16 20:00 98.0 83 20 140/76 98 11/11/16 20:00 97.5 57 18 106/59 96 11/11/16 17:59 96.9 57 18 139/73 98 11/11/16 12:51 53 18 127/60 98 Room Air 11/11/16 12:00 99 Room Air 11/11/16 11:51 56 18 98 Room Air 11/11/16 11:48 97.5 57 18 165/81 98 I/O 11/11/16 11/11/16 11/11/16 11/12/16 11/12/1617 07:00 15:00 23:00 07:00 15:00 23:00 Intake Total 360 ml Balance 360 ml Intake Oral 360 ml # Voids 1 Result Diagram: 11/12/16 0516 11/12/16 0516 Imaging Last Impressions Head CT 11/11/16 1157 Signed Impressions: Service Date/Time: October 12:34 - CONCLUSION: 1. No acute intracranial findings. 2. Mild partial opacification left ethmoid sinus with small air-fluid level suggestive of acute sinusitis.. Hal Mcclain MD Chest X-Ray 11/11/16 1157 Signed Impressions: Service Date/Time: October 12:01 - CONCLUSION: No acute disease. Jerad Laurent Jr., MD Neck Magnetic Resonance Angiography 11/11/16 0000 Signed Impressions: Service Date/Time: October 16:00 - CONCLUSION: Carotid MRA within normal limits. Hal Mcclain MD Brain MRI 11/11/16 0000 Signed Impressions: Service Date/Time: October 16:00 - CONCLUSION: Small acute to subacute infarct in the subcortical white matter of the left parietal lobe. No mass effect. No evidence of hemorrhage. Hal Mcclain MD Procedures No procedures performed Other Results Laboratory Tests Test 11/11/16 11/11/16 11/11/16 11/12/16 12:02 13:25 20:50 05:16 Magnesium Level 2.3 MG/DL Creatine Kinase MB 2.4 NG/ML Urine Color LIGHT-YELLOW Urine Turbidity CLEAR Urine pH 7.0 Urine Specific [place] 1.006 Urine Protein NEG mg/dL Urine Glucose (UA) NEG mg/dL Urine Ketones NEG mg/dL Urine Occult Blood NEG Urine Nitrite NEG Urine Bilirubin NEG Urine Urobilinogen LESS THAN 2.0 MG/DL Urine Leukocyte Esterase NEG Urine WBC 1 /hpf Microscopic Urinalysis Comment CULT NOT INDICATED Hemoglobin A1c 5.8 % Vitamin B12 Level 380 PG/ML Folate GREATER THAN 20.0 NG/ML Free Thyroxine 0.81 NG/DL Thyroid Stimulating Hormone 2.840 uIU/ML 3rd Gen White Blood Count 5.4 TH/MM3 Red Blood Count 4.43 MIL/MM3 Hemoglobin 14.0 GM/DL Hematocrit 41.7 % Mean Corpuscular Volume 94.1 FL Mean Corpuscular Hemoglobin 31.7 PG Mean Corpuscular Hemoglobin 33.7 % Concent Red Cell Distribution Width 13.1 % Platelet Count 205 TH/MM3 Mean Platelet Volume 8.2 FL Neutrophils (%) (Auto) 39.4 % Lymphocytes (%) (Auto) 48.7 % Monocytes (%) (Auto) 7.2 % Eosinophils (%) (Auto) 3.6 % Basophils (%) (Auto) 1.1 % Neutrophils # (Auto) 2.1 TH/MM3 Lymphocytes # (Auto) 2.6 TH/MM3 Monocytes # (Auto) 0.4 TH/MM3 Eosinophils # (Auto) 0.2 TH/MM3 Basophils # (Auto) 0.1 TH/MM3 CBC Comment DIFF FINAL Differential Comment Prothrombin Time 11.5 SEC Prothromb Time International 1.0 RATIO Ratio Activated Partial 45.2 SEC Thromboplast Time Sodium Level 141 MEQ/L Potassium Level 4.1 MEQ/L Chloride Level 106 MEQ/L Carbon Dioxide Level 29.3 MEQ/L Anion Gap 6 MEQ/L Blood Urea Nitrogen 13 MG/DL Creatinine 1.00 MG/DL Estimat Glomerular Filtration 74 ML/MIN Rate Random Glucose 82 MG/DL Calcium Level 8.7 MG/DL Total Bilirubin 0.4 MG/DL Direct Bilirubin 0.1 MG/DL Indirect Bilirubin 0.3 MG/DL Aspartate Amino Transf 24 U/L (AST/SGOT) Alanine Aminotransferase 33 U/L (ALT/SGPT) Alkaline Phosphatase 51 U/L Total Creatine Kinase 134 U/L Troponin I LESS THAN 0.02 NG/ML Total Protein 6.6 GM/DL Albumin 3.5 GM/DL Triglycerides Level 143 MG/DL Cholesterol Level 165 MG/DL LDL Cholesterol 94 MG/DL HDL Cholesterol 42.6 MG/DL Cholesterol/HDL Ratio 3.87 RATIO Lipase 139 U/L Objective Remarks GENERAL: Obesity, in no acute distress SKIN: Focused skin assessment warm/dry. HEAD: Atraumatic. Normocephalic. EYES: Pupils equal and round. No scleral icterus. No injection or drainage. ENT: No nasal bleeding or discharge. Mucous membranes pink and moist. NECK: Trachea midline. No JVD. CARDIOVASCULAR: Regular rate and rhythm. No murmur appreciated. RESPIRATORY: No accessory muscle use. Clear to auscultation. Breath sounds equal bilaterally. GASTROINTESTINAL: Abdomen soft, non-tender, nondistended. Hepatic and splenic margins not palpable. MUSCULOSKELETAL: No obvious deformities. No clubbing. No cyanosis. No edema. NEUROLOGICAL: Awake and alert. No obvious cranial nerve deficits. Motor grossly within normal limits. Normal speech. No pronator drift. Equal strength bilateral extremities. PSYCHIATRIC: Appropriate mood and affect; insight and judgment normal. Medications and IVs Current Medications Medications (Trade) Dose Ordered Sig/Pollo Route Start Time Stop Time Status Last Admin Flecainide Acetate 50 mg 50 mg BID PO 11/11/16 21:00 11/12/16 08:54 (NS 1000 ml Inj) 1,000 ml @ 100 mls/hr Q10H IV 11/11/16 14:38 11/11/16 15:18 (Tylenol) 650 mg Q4H PRN PO 11/11/16 15:00 (Dulcolax Supp) 10 mg DAILY PRN RECTAL 11/11/16 15:00 (Colace) 100 mg Q12H PO 11/11/16 15:00 11/12/16 03:00 (Narcan Inj) 0.4 mg UNSCH PRN IV 11/11/16 14:45 (Pravachol) 20 mg DAILY PO 11/11/16 15:00 11/12/16 08:48 (NS Flush) 2 ml BID IV FLUSH 11/11/16 21:00 11/11/16 21:00 (NS Flush) 2 ml UNSCH PRN IV FLUSH 11/11/16 19:30 (D50w (Vial) Inj) 25 ml UNSCH PRN IV PUSH 11/11/16 19:30 Glucagon 1 mg 1 mg UNSCH PRN IM/SQ 11/11/16 19:30 (Heparin-D5W Inj) 250 ml @ 0 mls/hr TITRATE IV 11/11/16 19:30 11/11/16 23:00 (Lopressor) 12.5 mg BID PO 11/12/16 09:00 (Eliquis) 5 mg BID PO 11/12/16 09:00 11/12/16 09:08 A/P Assessment and Plan 1. Acute to Subacute Temporal Ischemic Stroke on Cardiac monitoring, Cardiac Enzymes, MRI of the brain found ischemic stroke, on Apixaban Neurology specialist following. Aspirin, Statin. 2. Atrial Fibrillation at this time on sinus rhythm, has first degree AV block. bradycardia probable secondary to Anti arrhythmic medicines placed parameters to his medicines, asked for equal opportunity specialist consult CHADS 2 Score 3 will need anticoagulation. at this time he has sinus rhythm, will continue aspirin by now until seen by Cardiology to take decision the best medicine for him. 3. Hypertension controlled. 4. Obesity strongly recommended to diet and exercise. DVT prophylaxis with Lovenox. PT and OT evaluation. Discussed with patient and his in the room, he will need to follow with Cardiology and Neurology specialist as outpatient. Code Status Full code Discussed Condition With Patient and his in the room. Discharge Planning Awaiting final recommendation from specialists for discharge. Jay Diaz MD Nov 12, 2016 10:41
--- NOTE | 2016-11-12 16:20 | EKG ---
Date Performed: 11/11/2016 Time Performed: 11:48:49 PTAGE: 71 years EKG: SINUS BRADYCARDIA WITH FIRST DEGREE AV BLOCK BORDERLINE LEFT AXIS DEVIATION ABNORMAL ECG IN TERPRETATION BASED ON A DEFAULT AGE OF 40 YEARS NO PREVIOUS TRACING DOCTOR: Faby Nelson Interpretating Date/Time 11/12/2016 16:19:42
--- NOTE | 2016-11-12 19:02 | HHI.PR ---
Review/Management Diagnosis small left parietal cva history of intermittent afib Plan continue eliquis ok from neurology standpoint to d/c home follow up with me in office in 2-3 weeks Diagnosis/Plan: Subjective Subjective Comments No acute events reported Now on eliquis Active Medications Current Medications Medications (Trade) Dose Ordered Sig/Pollo Route Start Time Stop Time Status Last Admin Flecainide Acetate 50 mg 50 mg BID PO 11/11/16 21:00 11/12/16 08:54 (NS 1000 ml Inj) 1,000 ml @ 100 mls/hr Q10H IV 11/11/16 14:38 11/11/16 15:18 (Tylenol) 650 mg Q4H PRN PO 11/11/16 15:00 (Dulcolax Supp) 10 mg DAILY PRN RECTAL 11/11/16 15:00 (Colace) 100 mg Q12H PO 11/11/16 15:00 11/12/16 03:00 (Narcan Inj) 0.4 mg UNSCH PRN IV 11/11/16 14:45 (Pravachol) 20 mg DAILY PO 11/11/16 15:00 11/12/16 08:48 (NS Flush) 2 ml BID IV FLUSH 11/11/16 21:00 11/11/16 21:00 (NS Flush) 2 ml UNSCH PRN IV FLUSH 11/11/16 19:30 (D50w (Vial) Inj) 25 ml UNSCH PRN IV PUSH 11/11/16 19:30 Glucagon 1 mg 1 mg UNSCH PRN IM/SQ 11/11/16 19:30 (Heparin-D5W Inj) 250 ml @ 0 mls/hr TITRATE IV 11/11/16 19:30 11/11/16 23:00 (Lopressor) 12.5 mg BID PO 11/12/16 09:00 (Eliquis) 5 mg BID PO 11/12/16 09:00 11/12/16 09:08 Allergies Allergies Coded Allergies No Known Allergies (Unverified11/11/16) Exam I&O / VS 11/11/16 11/11/16 11/12/16 15:00 23:00 07:00 Intake Total 360 ml Balance 360 ml Intake Oral 360 ml # Voids 1 Vital Signs Date Time Temp Pulse Resp B/P Pulse Ox O2 Delivery O2 Flow Rate FiO2 11/12/16 17:20 96 21 11/12/16 16:00 95.8 55 16 108/57 96 11/12/16 12:00 96.2 49 16 119/67 96 11/12/16 10:29 94 21 11/12/16 10:15 50 11/12/16 08:00 96.3 51 16 125/69 95 11/12/16 04:22 54 11/12/16 04:00 97.2 58 20 110/61 96 11/12/16 00:00 97.0 55 20 108/57 96 11/11/16 20:00 98.0 83 20 140/76 98 11/11/16 20:00 97.5 57 18 106/59 96 Exam Comments alert oriented, speech normal CN 2-12 normal Motor 5/5 BUE and BLE Objective Radiology Results MRI brain--small left parietal stroke MRA carotids in neck--no significant stenosis Micro and Labs Laboratory Tests Test 11/11/16 11/12/16 20:50 05:16 White Blood Count 5.2 5.4 Red Blood Count 4.53 4.43 Hemoglobin 14.7 14.0 Hematocrit 43.1 41.7 Mean Corpuscular Volume 95.2 94.1 Mean Corpuscular Hemoglobin 32.4 31.7 Mean Corpuscular Hemoglobin 34.1 33.7 Concent Red Cell Distribution Width 13.1 13.1 Platelet Count 224 205 Mean Platelet Volume 8.0 8.2 Prothrombin Time 11.3 11.5 Prothromb Time International 1.0 1.0 Ratio Activated Partial 27.2 45.2 Thromboplast Time Hemoglobin A1c 5.8 Total Creatine Kinase 145 134 Troponin I LESS THAN 0.02 LESS THAN 0.02 Triglycerides Level 200 143 Cholesterol Level 168 165 LDL Cholesterol 81 94 HDL Cholesterol 47.5 42.6 Cholesterol/HDL Ratio 3.53 3.87 Vitamin B12 Level 380 Folate GREATER THAN 20.0 Free Thyroxine 0.81 Thyroid Stimulating Hormone 2.840 3rd Gen Neutrophils (%) (Auto) 39.4 Lymphocytes (%) (Auto) 48.7 Monocytes (%) (Auto) 7.2 Eosinophils (%) (Auto) 3.6 Basophils (%) (Auto) 1.1 Neutrophils # (Auto) 2.1 Lymphocytes # (Auto) 2.6 Monocytes # (Auto) 0.4 Eosinophils # (Auto) 0.2 Basophils # (Auto) 0.1 CBC Comment DIFF FINAL Differential Comment Sodium Level 141 Potassium Level 4.1 Chloride Level 106 Carbon Dioxide Level 29.3 Anion Gap 6 Blood Urea Nitrogen 13 Creatinine 1.00 Estimat Glomerular Filtration 74 Rate Random Glucose 82 Calcium Level 8.7 Total Bilirubin 0.4 Direct Bilirubin 0.1 Indirect Bilirubin 0.3 Aspartate Amino Transf 24 (AST/SGOT) Alanine Aminotransferase 33 (ALT/SGPT) Alkaline Phosphatase 51 Total Protein 6.6 Albumin 3.5 Lipase 139 Hamilton Thurston PhD MD Nov 12, 2016 19:02
--- NOTE | 2016-11-13 11:56 | HHI.DS ---
Discharge Summary Admission Date Nov 11, 2016 at 14:34 Discharge Date: Nov 12, 2016 Admitting Diagnosis TIA (1) TIA (transient ischemic attack) ICD Code: G45.9 Diagnosis: Principal (2) Atrial fibrillation, currently in sinus rhythm ICD Code: Z86.79 Diagnosis: Principal Procedures No procedures performed. Brief History - From Admission This is a pleasant 71 y/o male with Hypertension, Melanoma, Atrial fibrillation by history, today on Sinus rhythm, has Bradycardia probable secondary to his anti arrhythmic medicines, Flecainide and Beta Blockers, Patient states he was working on his taxes and around 11:15 this morning he noticed he was having difficult time typing and the address. He then noticed he was drooling. He went in to talk to his and had slurred speech. This resolved after 30-40 minutes but the patient continued to the ER for further evaluation. There is no preceding headache. since seen by ER physician totally asymptomatic. Seen in his bedroom in ER and discussed with him and his , Daughter and sister in law, he is stable his daughter states more than slurred speech, suddenly he was not able to speak but resolved without symptomatology. he has recurrent PAF and was recommended by client delivery specialist to be on anticoagulation, now his CHADS2 SCORE INCREASED TO 3 and he may need to be on anticoagulation at the time of this evaluation he is sinus rhythm, has Bradycardia may need to titrate his Heart medicines, asked for Neurology and Cardiology consults. CBC/BMP: 11/12/16 0516 11/12/16 0516 Significant Findings Laboratory Tests Test 11/11/16 11/11/16 11/12/16 12:02 20:50 05:16 Prothrombin Time 13.1 SEC (9.8-11.6) Anion Gap 3 MEQ/L (5-15) Estimat Glomerular Filtration 72 ML/MIN (>89) 74 ML/MIN (>89) Rate Troponin I LESS THAN 0.02 LESS THAN 0.02 NG/ML NG/ML (0.02-0.05) (0.02-0.05) Triglycerides Level 200 MG/DL (42-150) Folate GREATER THAN 20.0 NG/ML (3.1-17.5) Red Blood Count 4.43 MIL/MM3 (4.50-5.90) Lymphocytes (%) (Auto) 48.7 % (9.0-44.0) Activated Partial 45.2 SEC Thromboplast Time (24.3-30.1) Imaging Last Impressions Head CT 11/11/16 1157 Signed Impressions: Service Date/Time: October 12:34 - CONCLUSION: 1. No acute intracranial findings. 2. Mild partial opacification left ethmoid sinus with small air-fluid level suggestive of acute sinusitis.. Hal Mcclain MD Chest X-Ray 11/11/16 1157 Signed Impressions: Service Date/Time: October 12:01 - CONCLUSION: No acute disease. Jerad Laurent Jr., MD Neck Magnetic Resonance Angiography 11/11/16 0000 Signed Impressions: Service Date/Time: October 16:00 - CONCLUSION: Carotid MRA within normal limits. Hal Mcclain MD Brain MRI 11/11/16 0000 Signed Impressions: Service Date/Time: October 16:00 - CONCLUSION: Small acute to subacute infarct in the subcortical white matter of the left parietal lobe. No mass effect. No evidence of hemorrhage. Hal Mcclain MD PE at Discharge Not seen at discharge Hospital Course This is a pleasant 71 y/o male with Hypertension, Melanoma, Atrial fibrillation by history, today on Sinus rhythm, has Bradycardia probable secondary to his anti arrhythmic medicines, Flecainide and Beta Blockers, Patient states he was working on his taxes and around 11:15 this morning he noticed he was having difficult time typing and the address. He then noticed he was drooling. He went in to talk to his and had slurred speech. This resolved after 30-40 minutes but the patient continued to the ER for further evaluation. There is no preceding headache. since seen by ER physician totally asymptomatic. Seen in his bedroom in ER and discussed with him and his , Daughter and sister in law, he is stable his daughter states more than slurred speech, suddenly he was not able to speak but resolved without symptomatology. he has recurrent PAF and was recommended by client delivery specialist to be on anticoagulation, now his CHADS2 SCORE INCREASED TO 3 and he may need to be on anticoagulation at the time of this evaluation he is sinus rhythm, has Bradycardia may need to titrate his Heart medicines, asked for Neurology and Cardiology consults. 11/12 Patient seen in his bedroom awaiting final recommendations by Neurology specialist and client delivery specialist for discharge he may need anticoagulation. no nausea, vomit or diarrhea. Assessment and Plan 1. Acute to Subacute Temporal Ischemic Stroke on Cardiac monitoring, Cardiac Enzymes, MRI of the brain found ischemic stroke, on Apixaban Neurology specialist following. Aspirin, Statin. 2. Atrial Fibrillation at this time on sinus rhythm, has first degree AV block. bradycardia probable secondary to Anti arrhythmic medicines placed parameters to his medicines, asked for client delivery specialist consult CHADS 2 Score 3 will need anticoagulation. at this time he has sinus rhythm, will continue aspirin by now until seen by Cardiology to take decision the best medicine for him. 3. Hypertension controlled. 4. Obesity strongly recommended to diet and exercise. DVT prophylaxis with Lovenox. PT and OT evaluation. Discussed with patient and his in the room, he will need to follow with Cardiology and Neurology specialist as outpatient. Code Status Full code Discussed Condition With Patient and his in the room. Discharge Planning Awaiting final recommendation from specialists for discharge. I NEVER GAVE THE ORDER TO DISCHARGE THIS PATIENT I WILL PLACE A COMPLAINT TO THE FLOOR CHARGE NURSE ABOUT THIS CASE, LOOKS LIKE THE ORDER WAS GIVEN BY ANOTHER PHYSICIAN AND PLACED IN MY NAME HAS NO MEDICATION RECONCILIATION, BUT NEEDS THE ATTENDING PHYSICIAN ORDER TO DISCHARGE, DISCUSSED WITH CHARGE NURSE MISS JOSEPH FOSTER Pt Condition on Discharge: Good Discharge Disposition: Discharge Home Discharge Time: <= 30 minutes Discharge Instructions DIET: Follow Instructions for: Heart Healthy Diet Activities you can perform: Regular-No Restrictions Jay Diaz MD Nov 13, 2016 11:55
--- NOTE | 2016-11-17 16:37 | PD.CONS ---
Assessment and Plan Plan Consult received per stroke order set. MRI shows small acute-subacute infarct subcortical left parietal area. Independent with all mobility and ADL's per PT/OT. Neurology consult exam intact.. Consultation deferred. Fabiola Fay MD Nov 17, 2016 16:37
== END 2016-11-12 22:11 | disposition home or self-care (01) ==
LOC: NEPE 11:44 → NEDA 14:34 → N05B 16:52
PROVIDERS: ADMIT Internal Medicine; ATTEND Internal Medicine
DX: I63.9 Cerebral infarction, unspecified (principal); R47.81 Slurred speech; I48.0 Paroxysmal atrial fibrillation; I10 Essential (primary) hypertension; I44.0 Atrioventricular block, first degree; E66.9 Obesity, unspecified; Z68.30 Body mass index [BMI] 30.0-30.9, adult; Z79.82 Long term (current) use of aspirin; Z85.820 Personal history of malignant melanoma of skin
CPT/HCPCS: 70450; 70548; 70551; 71010; 80048; 80053; 80061; 80076; 81001; 82550; 82552; 82607; 82746; 83036; 83690; 83735; 84439; 84443; 84484; 85025; 85027; 85610; 85730; 93005; 93306; 97161; 97165; 99285; A9579; G0378; G8987; G8988; G8989; J1644; J1650; J7030